=== PATIENT | female | born 1950 | race Caucasian/White ===

== ENCOUNTER 2017-03-09 08:08 | Outpatient (CLI) | payer MEDICARE, OTHER ==
[2017-03-09 09:10] LABS: HEMOGLOBIN A1C 0.84 g/dL
[2017-03-09 15:10] LABS: ALBUMIN/GLOBULIN RATIO 1.8 (1.0-2.2); BILIRUBIN,TOTAL 0.7 mg/dL (0.2-1.0); CREATININE 0.8 mg/dL (0.4-1.0); TOTAL PROTEIN 7.3 g/dL (6.7-8.2)
[2017-03-09 15:25] LABS: CALCIUM 9.6 mg/dL (8.5-10.3); POTASSIUM 4.5 mmol/L (3.5-5.0)
== END 2017-03-09 08:09 | disposition home or self-care (01) ==
LOC: LAB 08:08
PROVIDERS: ATTEND Family Medicine
DX: C54.1 Malignant neoplasm of endometrium (principal); L65.9 Nonscarring hair loss, unspecified; R73.01 Impaired fasting glucose; Z79.899 Other long term (current) drug therapy
CPT/HCPCS: 36415; 80053; 83036; 84403